=== PATIENT | female | born 1985 | race Caucasian/White ===

== ENCOUNTER 2020-08-12 15:48 | Emergency (ER) | payer BC, SELFPAY ==
--- NOTE | 2020-08-12 15:53 | ED.URI ---
HPI - URI/Sore Throat General Chief Complaint: Upper Respiratory Infection Stated Complaint: upper respiratory infection Time Seen by Provider: 08/12/20 16:09 Source: patient and RN notes reviewed Mode of arrival: ambulatory Limitations: no limitations History of Present Illness HPI Narrative: This is a 35-year-old white female who presented to urgent care complaining of excessive coughing, nasal congestion, shortness of breath and bilateral ear pain. According to patient 2 weeks ago she started experiencing bilateral ear pain that she describes as a occasional throbbing feeling. Patient notes that she used hydrogen peroxide in her ears which gave her some relief. She noted that this morning she woke up and noticed that she was short of breath and had an excessive cough that was nonproductive. Patient does have a history of sinusitis. She noted that she is supposed to have sinuplasty but due to Covid it was postponed. The patient denies CP, palpitation, extremity numbness, lightheadedness, dizziness, constipation, diarrhea, chills, or fever. Patient also noted that she use her albuterol with no relief she notes that the Symbicort seems to help her more. She is a smoker. I instructed that she use Symbicort on a regular basis for her shortness of breath. 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 Despite proofreading, typographical errors may also occur. Related Data Home Medications Medication Instructions Recorded Confirmed albuterol sulfate [ProAir HFA] 2 inh INHALATION QID PRN 08/12/20 08/12/20 Allergies Allergy/AdvReac Type Severity Reaction Status Date / Time No Known Drug Allergies Allergy Unknown Verified 12/05/16 12:25 Review of Systems Review of Systems: All systems reviewed & are unremarkable except as noted in HPI and below (10 point system review) PMFSH Past Medical History Medical History COPD (chronic obstructive pulmonary disease) Sinusitis Social History Social History Gender identity (if verbalized by the patient): Female Exam Narrative: Exam Narrative: GENERAL: This is a well-nourished, well-developed patient, in no apparent distress. HEAD: normocephalic, atraumatic. Tender frontal sinuses EYES: PERRL. Sclera clear/white. Vision is grossly intact. EARS: External ears normal, auditory canals clear and without drainage, TMs normal without perforation. Hearing grossly intact. NOSE: External nose normal with no obvious nasal discharge, nares without redness, no rhinorrhea. THROAT: Mucous membranes moist, posterior pharynx erythematous. NECK: Neck supple, non-tender without lymphadenopathy, masses or thyromegaly. CARDIOVASCULAR: Regular rate and rhythm without murmurs, gallops, or rubs. RESPIRATORY: Clear to auscultation. Breath sounds equal bilaterally. No wheezes, rales, or rhonchi. GASTROINTESTINAL: Abdomen soft, non-tender, nondistended. Bowel sounds are active. No hepato-splenomegaly, or palpable masses. No guarding. SKIN: warm, intact with no suspicious lesions or rash, good texture and turgor. NEURO: awake, alert, and oriented to person, place and time. There were no obvious focal neurologic abnormalities. Steady gait EXTREMITIES: Normal range of motion. No edema. No calf tenderness. Negative Homans sign bilaterally. BACK: Nontender without deformity or crepitance. No flank tenderness. Course Vital Signs Vital signs: Vital Signs Temperature 98.1 F 08/12/20 16:04 Pulse Rate 89 08/12/20 16:04 Respiratory Rate 20 08/12/20 16:04 Blood Pressure 145/90 H 08/12/20 16:04 Pulse Oximetry 100 08/12/20 16:04 Temperature 98.1 F 08/12/20 16:04 Pulse Rate 89 08/12/20 16:04 Respiratory Rate 20 08/12/20 16:04 Blood Pressure 145/90 H 08/12/20 16:04 Pulse Oximetry 100
[2020-08-12 16:04] VITALS: BP 145/90; PULSE 89; RESP 20; TEMP 36.7; O2SAT 100
== END 2020-08-12 16:24 | disposition home or self-care (01) ==
PROVIDERS: Emergency Provider Nurse Practitioner; PCP Nurse Practitioner Family
DX: H66.90 Otitis media, unspecified, unspecified ear (principal); J01.11 Acute recurrent frontal sinusitis; Z20.822 Contact with and (suspected) exposure to COVID-19; J44.9 Chronic obstructive pulmonary disease, unspecified; F17.200 Nicotine dependence, unspecified, uncomplicated
CPT/HCPCS: 87426; 87804; 99213; C9803; G0463